=== PATIENT | male | born 1965 | race Caucasian/White ===

== ENCOUNTER 2019-03-27 02:27 | Emergency (ER) | payer BC ==
--- OUTSIDE RECORDS SUMMARY | 2019-03-27 02:30 | XMS REPORT | Clinical Summary ---
:1965 Author Organization [facility] Address [address] [place] [address] Care Team Providers Name Role Phone Asked, No Pcp Primary Care Provider Unavailable Allergies Not on File Medications Not on file Active Problems Not on file Social History Tobacco Use Types Packs/Day Years Used Date Never Assessed Sex Assigned at Date Recorded Not on file Job Start Date Occupation Industry Not on file Not on file Not on file Travel History Travel Start Travel End No recent travel history available. Last Filed Vital Signs Not on file Plan of Treatment Health Maintenance Due Date Last Done Comments COLONOSCOPY SCREENING 2014 SHINGLES VACCINES (#1) 2014 INFLUENZA VACCINE 04/24/2019 Results Not on fileafter 03/26/2018 Guarantor Name Account Type Relation to Date of Phone Billing Address Patient Cory Becerra Personal/Family Self 1965 [phone] (Home) [place] [address] [employer] Other [phone] ATTN: [facility] [address] (Home) [facility] [phone] (Work) [place] [address] Advance Directives Patient has advance care planning documents on file. For more information, please contact:[id number] [place] [address]
[2019-03-27 03:35] LABS: Absolute Lymphocytes (CBC) 1.5 K/uL (0.7-4.9); Basophils % 0.6 % (0-1.3); Eosinophils % 0.6 % (0-4.4); Hematocrit 44.3 % (39.6-49.0); Lymphocytes % 24.9 % (15.3-44.8); MPV 8.3 fL (7.6-11.3); Monocytes % 8.5 % (3.3-12.3); RBC Red Blood Cell Count 5.04 M/uL (4.33-5.43)
[2019-03-27] MEDS ORDERED: FENTANYL CITR 100 MCG/2 ML ONE ×2 (03:36→04:42)
[2019-03-27 03:51] LABS: Albumin 4.1 g/dL (3.4-5.0); Bilirubin Direct 0.1 mg/dL (0-0.2); Bilirubin Total 0.8 mg/dL (0.2-1.0); Potassium 3.8 mmol/L (3.5-5.1); Protein, Total 7.6 g/dL (6.4-8.2)
[2019-03-27] MEDS ORDERED: FAMOTIDINE 20 MG/2 ML VIAL IV ONE (04:42)
[2019-03-27] MEDS ORDERED: HYDROCODONE/APAP 10/325 TAB ONE (06:41)
--- NOTE | 2019-03-27 06:55 | ER ---
Nurse's Notes [facility] Name: Cory Becerra Age: 53 yrs Sex: Male : 1965 Arrival Date: 03/27/2019 Time: 02:30 Bed 14 Private MD: Diagnosis: Generalized abdominal pain;Other specified noninfective gastroenteritis and colitis Presentation: 03/27 02:31 Presenting complaint: Patient states: I ate something 3 days ago and now I am having jb4 sever upper abdominal pain. 02:31 Transition of care: patient was not received from another setting of care. Onset of jb4 symptoms was March 24, 2019. Risk Assessment: Do you want to hurt yourself or someone else? Patient reports no desire to harm self or others. Initial Sepsis Screen: Does the patient meet any 2 criteria? No. Patient's initial sepsis screen is negative. Does the patient have a suspected source of infection? Yes: Acute abdominal pain. Care prior to arrival: None. 02:31 Method Of Arrival: Ambulatory jb4 02:31 Acuity: HONEY 3 jb4 Triage Assessment: 02:31 General: Appears in no apparent distress. uncomfortable, Behavior is calm, cooperative, jb4 appropriate for age. Pain: Complains of pain in right upper quadrant and left upper quadrant Pain does not radiate. Pain currently is 7 out of 10 on a pain scale. Quality of pain is described as Pain began 2-3 days ago. Is continuous. EENT: No signs and/or symptoms were reported regarding the EENT system. Neuro: Level of Consciousness is awake, alert, obeys commands, Oriented to person, place, time, situation. Cardiovascular: Patient's skin is warm and dry. Respiratory: Airway is patent Respiratory effort is even, unlabored, Respiratory pattern is regular, symmetrical. GI: Abdomen is non-distended, obese, Bowel sounds present X 4 quads. Abd is soft and non tender X 4 quads. : No signs and/or symptoms were reported regarding the genitourinary system. Derm: Skin is intact, Skin is pink, warm \T\ dry. Musculoskeletal: Circulation, motion, and sensation intact. Historical: - Allergies: 02:31 No Known Allergies; jb4 - Home Meds: 02:31 atorvastatin oral oral [Active]; fenofibric acid oral oral [Active]; Glimepiride Oral jb4 [Active]; losartan oral oral [Active]; - PMHx: 02:31 Pancreatitis; Diabetes - NIDDM; Hypertension; Hyperlipidemia; jb4 - PSHx: 02:31 Cholecystectomy; jb4 - Immunization history:: Adult Immunizations unknown. - Social history:: Smoking status: Patient/guardian denies using tobacco, Patient/guardian denies using alcohol. - Ebola Screening: : No symptoms or risks identified at this time. Screenin:31 Abuse screen: Denies threats or abuse. Nutritional screening: No deficits noted. jb4 Tuberculosis screening: No symptoms or risk factors identified. Fall Risk None identified. Assessment: 02:31 General: see triage assessment.. jb4 03:30 Reassessment: Patient appears in no apparent distress at this time. Patient and/or jb4 family updated on plan of care and expected duration. Pain level reassessed. Patient is alert, oriented x 3, equal unlabored respirations, skin warm/dry/pink. 04:30 Reassessment: Patient appears in no apparent distress at this time. Patient and/or jb4 family updated on plan of care and expected duration. Pain level reassessed. Patient is alert, oriented x 3, equal unlabored respirations, skin warm/dry/pink. 06:00 Reassessment: Patient appears in no apparent distress at this time. Patient and/or jb4 family updated on plan of care and expected duration. Pain level reassessed. Pt is resting with eyes closed, respirations even and unlabored, no s/s of pain or distress noted. 06:20 Reassessment: PT reports an increase in pain, provider notified, see [facility] for orders. jb4 07:06 Reassessment: Patient appears in no apparent distress at this time. Patient and/or jb4 family updated on plan of care and expected duration. Pain level reassessed. Patient is alert, oriented x 3, equal unlabored respirations, skin warm/dry/pink. Pt verbalized understanding of d/c and follow up instructions, denies questions or concerns. Vital Signs: 02:31 BP 147 / 76; Pulse 80; Resp 16; Temp 98.6(O); Pulse Ox 97% on R/A; Weight 136.08 kg jb4 (R); Height 6 ft. 4 in. (193.04 cm); Pain 7/10; 03:30 BP 118 / 77; Pulse 78; Resp 16; Pulse Ox 93% on R/A; jb4 04:30 BP 122 / 85; Pulse 79; Resp 18; Pulse Ox 97% on R/A; jb4 06:00 BP 126 / 77; Pulse 83; Resp 16; Pulse Ox 96% on R/A; jb4 07:00 BP 118 / 78; Pulse 89; Resp 16; Pulse Ox 98% on R/A; jb4 02:31 Body Mass Index 36.52 (136.08 kg, 193.04 cm) jb4 ED Course: 02:30 Patient arrived in ED. ag3 02:31 Arm band placed on left wrist. jb4 02:31 Patient has correct armband on for positive identification. Bed in low position. Call jb4 light in reach. Side rails up X 1. Pulse ox on. NIBP on. 02:32 Yoel Castro RN is Primary Nurse. jb4 02:42 Triage completed. jb4 02:45 Bucky Contreras MD is Attending Physician. gs 03:00 Initial lab(s) drawn, by me, sent to lab. Inserted saline lock: 20 gauge in left jb4 antecubital area, using aseptic technique. Blood collected. 03:00 Missed attempt(s): 20 gauge in right antecubital area. Bleeding controlled, band aid jb4 applied, catheter tip intact. 05:37 CT completed. Patient tolerated procedure well. Patient moved to CT via stretcher. Patient moved back from CT. 05:48 CT Stone Protocol In Process Unspecified. EDMS 07:00 No provider procedures requiring assistance completed. IV discontinued, intact, jb4 bleeding controlled, No redness/swelling at site. Administered Medications: 03:28 Drug: fentaNYL (PF) 50 mcg Route: IVP; Site: left antecubital; jb4 03:58 Follow up: Response: No adverse reaction; Pain is decreased jb4 04:32 Drug: Pepcid 20 mg Route: IVP; Site: left antecubital; jb4 05:12 Follow up: Response: No adverse reaction jb4 04:34 Drug: fentaNYL (PF) 50 mcg Route: IVP; Site: left antecubital; jb4 05:00 Follow up: Response: No adverse reaction; Pain is decreased jb4 06:28 Drug: [place] 10 mg-325 mg 1 tabs Route: PO; jb4 06:58 Follow up: Response: No adverse reaction; Pain is decreased jb4 Outcome: 06:54 Discharge ordered by . gumaro 07:00 Discharged to home ambulatory, with family. jb4 07:00 Condition: stable 07:00 Discharge instructions given to patient, family, Instructed on discharge instructions, follow up and referral plans. medication usage, Demonstrated understanding of instructions, follow-up care, medications, Prescriptions given X 3. 07:10 Patient left the ED. jb4 Signatures: Dispatcher [employer] EDKentrell Juarez James, RN RN jb4 Bucky Contreras MD MD gs Gomez, Cuca ag3
--- NOTE | 2019-03-27 06:55 | EDPHYS ---
Physician Documentation [facility] Name: Cory Becerra Age: 53 yrs Sex: Male : 1965 Arrival Date: 03/27/2019 Time: 02:30 Bed 14 Private MD: ED Physician Bucky Contreras HPI: 03/27 06:31 This 53 yrs old Male presents to ER via Ambulatory with complaints of gs Abdominal Pain. 06:31 The patient presents with abdominal pain that is diffuse. Onset: The symptoms/episode gs began/occurred 4 day(s) ago. Associated signs and symptoms: Pertinent positives: diarrhea, vomiting. The symptoms are described as crampy. Modifying factors: The symptoms are alleviated by nothing, the symptoms are aggravated by nothing. Severity of pain: At its worst the pain was moderate in the emergency department the pain is unchanged. Historical: - Allergies: 02:31 No Known Allergies; jb4 - Home Meds: 02:31 atorvastatin oral oral [Active]; fenofibric acid oral oral [Active]; Glimepiride Oral jb4 [Active]; losartan oral oral [Active]; - PMHx: 02:31 Pancreatitis; Diabetes - NIDDM; Hypertension; Hyperlipidemia; jb4 - PSHx: 02:31 Cholecystectomy; jb4 - Immunization history:: Adult Immunizations unknown. - Social history:: Smoking status: Patient/guardian denies using tobacco, Patient/guardian denies using alcohol. - Ebola Screening: : No symptoms or risks identified at this time. ROS: 06:45 All other systems are negative. gs Exam: 06:45 Head/Face: Normocephalic, atraumatic. Eyes: Pupils equal round and reactive to light, gs extra-ocular motions intact. Lids and lashes normal. Conjunctiva and sclera are non-icteric and not injected. Cornea within normal limits. Periorbital areas with no swelling, redness, or edema. ENT: Nares patent. No nasal discharge, no septal abnormalities noted. Tympanic membranes are normal and external auditory canals are clear. Oropharynx with no redness, swelling, or masses, exudates, or evidence of obstruction, uvula midline. Mucous membranes moist. Neck: Trachea midline, no thyromegaly or masses palpated, and no cervical lymphadenopathy. Supple, full range of motion without nuchal rigidity, or vertebral point tenderness. No Meningismus. Chest/axilla: Normal chest wall appearance and motion. Nontender with no deformity. No lesions are appreciated. Cardiovascular: Regular rate and rhythm with a normal S1 and S2. No gallops, murmurs, or rubs. Normal PMI, no JVD. No pulse deficits. Respiratory: Lungs have equal breath sounds bilaterally, clear to auscultation and percussion. No rales, rhonchi or wheezes noted. No increased work of breathing, no retractions or nasal flaring. Abdomen/GI: Soft, non-tender, with normal bowel sounds. No distension or tympany. No guarding or rebound. No evidence of tenderness throughout. Back: No spinal tenderness. No costovertebral tenderness. Full range of motion. Skin: Warm, dry with normal turgor. Normal color with no rashes, no lesions, and no evidence of cellulitis. MS/ Extremity: Pulses equal, no cyanosis. Neurovascular intact. Full, normal range of motion. Neuro: Awake and alert, GCS 15, oriented to person, place, time, and situation. Cranial nerves II-XII grossly intact. Motor strength 5/5 in all extremities. Sensory grossly intact. Cerebellar exam normal. Normal gait. 06:45 Constitutional: The patient appears alert, awake. 06:45 ECG was reviewed by the Attending Physician. 06:45 Abdomen/GI: no pain with palpation, says pain inside. Vital Signs: 02:31 BP 147 / 76; Pulse 80; Resp 16; Temp 98.6(O); Pulse Ox 97% on R/A; Weight 136.08 kg jb4 (R); Height 6 ft. 4 in. (193.04 cm); Pain 7/10; 03:30 BP 118 / 77; Pulse 78; Resp 16; Pulse Ox 93% on R/A; jb4 04:30 BP 122 / 85; Pulse 79; Resp 18; Pulse Ox 97% on R/A; jb4 06:00 BP 126 / 77; Pulse 83; Resp 16; Pulse Ox 96% on R/A; jb4 07:00 BP 118 / 78; Pulse 89; Resp 16; Pulse Ox 98% on R/A; jb4 02:31 Body Mass Index 36.52 (136.08 kg, 193.04 cm) [facility] MDM: 03:12 Patient medically screened. gs 06:45 Differential diagnosis: bowel obstruction, gastritis, non-specific abd pain, gs pancreatitis. Data reviewed: vital signs, nurses notes, lab test result(s), EKG, radiologic studies. Counseling: I had a detailed discussion with the patient and/or guardian regarding: the historical points, exam findings, and any diagnostic results supporting the discharge/admit diagnosis, the need for outpatient follow up. Response to treatment: the patient's symptoms have markedly improved after treatment. Response to treatment: and as a result, I will discharge patient. 03/27 02:46 Order name: Basic Metabolic Panel; Complete Time: 04:01 03/27 02:46 Order name: CBC with Diff; Complete Time: 04: 03/27 02:46 Order name: Hepatic Function; Complete Time: 04:01 03/27 02:46 Order name: Lipase; Complete Time: 04:01 03/27 04:18 Order name: CT Stone Protocol 03/27 02:46 Order name: IV Saline Lock; Complete Time: 03:18 03/27 02:46 Order name: Labs collected and sent; Complete Time: 03:18 03/27 02:46 Order name: EKG - Nurse/Tech; Complete Time: 03:18 EC:45 Rate is 75 beats/min. Rhythm is regular. ID interval is normal. QRS interval is normal. gs QT interval is normal. T waves are Flattened. Clinical impression: NSR w/ Non-specific ST/T Changes. Interpreted by me. Administered Medications: 03:28 Drug: fentaNYL (PF) 50 mcg Route: IVP; Site: left antecubital; jb4 03:58 Follow up: Response: No adverse reaction; Pain is decreased jb4 04:32 Drug: Pepcid 20 mg Route: IVP; Site: left antecubital; jb4 05:12 Follow up: Response: No adverse reaction jb4 04:34 Drug: fentaNYL (PF) 50 mcg Route: IVP; Site: left antecubital; jb4 05:00 Follow up: Response: No adverse reaction; Pain is decreased jb4 06:28 Drug: [place] 10 mg-325 mg 1 tabs Route: PO; jb4 06:58 Follow up: Response: No adverse reaction; Pain is decreased jb4 Disposition: 03/27/19 06:54 Discharged to Home. Impression: Generalized abdominal pain, Other specified noninfective gastroenteritis and colitis. - Condition is Stable. - Discharge Instructions: Abdominal Pain, Adult, Diarrhea, Adult, Colitis. - Prescriptions for Pepcid 20 mg Oral Tablet - take 1 tablet by ORAL route every 12 hours for 10 days; 20 tablet. Tylenol- Codeine #4 300-60 mg Oral Tablet - take 1 tablet by ORAL route every 6 hours As needed; 10 tablet. Zofran 4 mg Oral Tablet - take 1 tablet by ORAL route every 12 hours As needed; 6 tablet. - Medication Reconciliation Form, Thank You Letter, Antibiotic Education, Prescription Opioid Use form. - Follow up: Private Physician; When: 2 - 3 days; Reason: Re-evaluation by your physician. Signatures: Dispatcher [employer] EDYoel Lance RN RN jb4 Bucky Contreras MD MD gs Corrections: (The following items were deleted from the chart) 07:10 06:54 03/27/2019 06:54 Discharged to Home. Impression: Generalized abdominal pain; jb4 Other specified noninfective gastroenteritis and colitis. Condition is Stable. Forms are Medication Reconciliation Form, Thank You Letter, Antibiotic Education, Prescription Opioid Use. Follow up: Private Physician; When: 2 - 3 days; Reason: Re-evaluation by your physician. gs
--- NOTE | 2019-03-28 08:56 | EKG ---
Test Date: 2019-03-27 Test Time: 03:14:08 Contracting Manager: ROOPA MEASUREMENT RESULTS: Intervals: Rate: 75 VT: 152 QRSD: 98 QT: 398 QTc: 444 [place]: P: -20 VT: 152 QRS: -22 T: -2 INTERPRETIVE STATEMENTS: Normal sinus rhythm Low voltage QRS Inferior infarct, age undetermined Abnormal ECG No previous ECG available for comparison Electronically Signed On 03-28-19 08:53:19 CDT by Kris Carpio
--- NOTE | 2019-03-28 09:26 | RAD REPORT ---
EXAM DESCRIPTION: CT - Stone Protocol - 03/27/2019 6:22 am CLINICAL HISTORY: The patient is 53 years old and is Male; ABD PAIN TECHNIQUE: Axial computed tomography images of the abdomen and pelvis without intravenous contrast. Sagittal and coronal reformatted images were created and reviewed. This CT exam was performed usi ng one or more of the following dose reduction techniques: automated exposure control, adjustment o f the mA and/or kV according to patient size, and/or use of iterative reconstruction technique. COMPARISON: No relevant prior studies available. FINDINGS: LUNG BASES: Unremarkable. No mass. No consolidation. ABDOMEN: LIVER: There is a diffuse decrease in hepatic parenchymal density, consistent with fatty infiltr ation. The liver is enlarged. GALLBLADDER AND BILE DUCTS: Surgical clips are present in the right upper quadrant, consistent w ith previous cholecystectomy. PANCREAS: Unremarkable. No ductal dilation. SPLEEN: A 0.9 cm cyst within the spleen is present. No follow-up imaging is recommended. ADRENALS: Unremarkable. No mass. KIDNEYS AND URETERS: No obstructing stones. No hydronephrosis. STOMACH AND BOWEL: The stomach is decompressed. The small bowel is relatively normal in caliber. Mild mucosal thickening involving the majority the colon is present. There is no bowel obstruction. PELVIS: APPENDIX: The appendix is normal in caliber without surrounding inflammation. BLADDER: The bladder is well distended. No stones. REPRODUCTIVE: Unremarkable as visualized. ABDOMEN and PELVIS: INTRAPERITONEAL SPACE: Unremarkable. No free air. No significant fluid collection. BONES/JOINTS: No acute fracture. SOFT TISSUES: There are small bilateral fat containing inguinal hernias. Small fat-containing umbilical hernia is present. VASCULATURE: Unremarkable. No abdominal aortic aneurysm. LYMPH NODES: Unremarkable. No enlarged lymph nodes. IMPRESSION: Mild mucosal thickening involving the majority the colon. While the findings may be seco ndary to incomplete distention, a mild diffuse colitis is within the differential. There is no bowel obstruction. Electronically signed by: Carolyn Castellon MD 03/27/2019 6:03 AM CDT Due to temporary technical issues with the PACS/Fluency reporting system, reports are being signed by the in house radiologist as a courtesy to ensure prompt reporting. The interpreting radiologist is f ully responsible for the content of the report.
== END 2019-03-27 07:10 | disposition home or self-care (01) ==
LOC: ER 02:27
DX: K52.89 Other specified noninfective gastroenteritis and colitis (principal); I10 Essential (primary) hypertension; E78.5 Hyperlipidemia, unspecified; E11.9 Type 2 diabetes mellitus without complications
CPT/HCPCS: 36415; 74176; 76377; 80048; 80076; 83690; 85025; 93005; 96374; 96375; 99284; J3010